=== PATIENT | male | born 1945 | race Caucasian/White ===

== ENCOUNTER 2016-12-11 17:05 | Observation (INO) | payer OTHER ==
--- NOTE | ~2016-12-11 | CR63 ---
[facility] A Service of [facility] & [facility] / [facility] RADIOLOGY TEXT RESULTS PATIENT: CRYSTAL SALVADOR LOCATION: [facility] [id number] : [birth year] UNIT #: [id number] AGE: [address]: Perry Rubi MD SEX: M ORDER DR: [id number] [facility] [address] [facility]. [place], [place] [address] [id number] MR#: [id number] Acc #: [id number] NAME: CRYSTAL SALVADOR. : 1945 SEX: M STUDY DATE/TIME: 12/12/2016 8:28 UNIT: [facility] ROOM: [facility] STUDY DESCRIPTION: CR Chest 2 View Attending Physician: Perry Rubi M.D. Referring Physician: No Primary Care Physician Ordering Physician: Perry Rubi M.D. Primary Care Physician: No Primary Care Physician MEDICAL IMAGING REPORT This report is preliminary unless electronic signature is present EXAM PA and lateral chest INDICATION Shortness of air beginning yesterday. COMPARISON 01/15/2015. FINDINGS A PA and lateral view of the chest were obtained. The heart size and vascularity are normal. There are calcified granulomas in the right lung. There are no infiltrates. Lungs are slightly hyperinflated. The bones are normal. IMPRESSION No change no active disease. Dictated by... Josue Suarez M.D. THIS IS AN ELECTRONICALLY VERIFIED REPORT Josue Suarez M.D. at 12/13/2016 3:06 PM DARIA/joie TD: 12/13/2016 01:00 JOB #: [id number] MEDICAL IMAGING REPORT COPY
--- NOTE | ~2016-12-11 | DS ---
Unit #: [id number] #: [id number] Patient: CRYSTAL MOSQUERA [id number] [address] [address] [id number] I MR#: [id number] NAME: CRYSTAL MOSQUERA. ROOM: 562 Age: 71 Sex: M Admission Date: 12/12/2016 : 1945 Discharge Date: Attending Physician: Perry Rubi M.D. Referring Physician: No Primary Care Physician Primary Care Physician: No Primary Care Physician DISCHARGE SUMMARY SHORT STAY NOTE CHIEF COMPLAINT Low oxygen saturation. HISTORY OF PRESENT ILLNESS Mr. Crystal Mosquera is a 71-year-old white male with a previous admission in 01/2015 for hypoxemia secondary to drug overdose with benzodiazepines and opiates, which he uses recreationally. The patient came to the emergency room yesterday with similar issue. He does have known chronic obstructive pulmonary disease with some moderately diminished oxygen saturation at baseline, but he was noted to be 89% on room air in the emergency room and was placed in observation status, although he was otherwise improving from his presentation of overdose with benzodiazepines and opiate pills/hydrocodone. The patient endorses mild to moderate nonproductive cough over the last three weeks. He endorses night sweats over the last three nights. He denies any subjective fevers or chills. He denies any pain with deep breathing. He denies any chest pain or skipped heart beats. He denies any burning on urination. He denies any skin rashes. He denies any diarrhea. PAST MEDICAL HISTORY 1. Chronic obstructive pulmonary disease. 2. Chronic lumbago. 3. Obstructive sleep apnea for which he is noncompliant. 4. Ongoing tobacco abuse. 5. History of pulmonary nodule, felt to be benign on previous imaging. 6. Hypertension. 7. Dyslipidemia. 8. Benzodiazepine and opiate abuse, chronic. PAST SURGICAL HISTORY 1. Colonoscopy. 2. Back surgery. SOCIAL HISTORY He smokes one to two packs per day. Denies alcohol. He does abuse benzodiazepine pills and hydrocodone, both of which he buys on the street. FAMILY HISTORY Positive for lung disease and coronary artery disease. Unit #: [id number] #: [id number] Patient: CRYSTAL MOSQUERA ALLERGIES No known drug allergies per patient. HOME MEDICATIONS The patient does not know his exact medications. He does know he is on one cholesterol pill and two blood pressure pills. Presumably based on his last discharge summary, which he does not feel his medications have changed since then, these medications are 1. Benazepril. 2. Amlodipine. 3. Atorvastatin. 4. He is not currently using his inhalers. Previously he has been on Q-Dana and albuterol, but he has had trouble keeping those in stock at home. REVIEW OF SYSTEMS Full 10-point review of systems was done and is negative with the exceptions noted above in history of present illness. Pertinent negatives are also above in history of present illness. PHYSICAL EXAMINATION GENERAL: The patient is alert and oriented, in no acute distress. VITALS: Temperature 98.4, pulse 82, respiratory rate 18, blood pressure 140/56. HEENT: Head normocephalic, atraumatic. Eyes, sclerae white. Conjunctivae are normally fused. Nose, external nares normal. Mouth, mucous membranes are moist. No oropharyngeal lesions. NECK: Supple. No cervical lymphadenopathy. Trachea midline. LUNGS: Clear to auscultation bilaterally. No rales, rhonchi or wheezes. HEART: Regular rate and rhythm. No murmurs. ABDOMEN: Soft, nontender and nondistended. No mass or hepatosplenomegaly. EXTREMITIES: No clubbing, cyanosis or edema. SKIN: No rashes or lesions. Warm and dry throughout. MUSCULOSKELETAL: No joint effusions. No muscle or joint tenderness. NEUROLOGIC: The patient has 5/5 strength in all four extremities. No focal neurologic deficits. DIAGNOSTIC STUDIES LABORATORY: CBC, BMP, urinalysis and urine drug screen are all reviewed. Please see electronic chart for details. ASSESSMENT/PLAN 1. Mild hypoxia. Appears to be transient and resolved, related to his drug overdose. The patient has chronic diminished O2 saturations due to his chronic stable chronic obstructive pulmonary disease anyway. We will ambulate the patient on room air and make sure that his saturations are improved and will check a chest x-ray to determine if the patient needs treatment for possible pneumonia prior to discharge later today. 2. Polysubstance overdose with benzodiazepines and Lortab. The patient has been counseled. He will be given outpatient contact information for substance abuse treatment programs in the city. 3. Chronic obstructive pulmonary disease. The patient is advised to follow up with Dr. Perry Montes De Oca, his regular lung doctor, who saw him both at his last hospitalization here and has seen him previously for overnight sleep studies. The patient has been advised to quit tobacco in order to avoid being on life-long oxygen within the next one to Unit #: [id number] #: [id number] Patient: CRYSTAL MOSQUERA two years. 4. Hypertension, dyslipidemia. These appear controlled. The patient can restart his home medications upon discharge and can follow up with his primary care physician, which is [facility]. Dictated by... Perry Rubi M.D. DANY/nadeem TD: 12/12/2016 07:54 JOB #: [id number] DISCHARGE SUMMARY X Prery Rubi MD X DISCHARGE SUMMARY
--- NOTE | ~2016-12-11 | DS ---
Unit #: [id number] #: [id number] Patient: CRYSTAL SALVADOR [id number] [address] [address] [id number] I MR#: [id number] NAME: CRYSTAL SALVADOR ROOM: [facility] Age: 71 Sex: M Admission Date: 12/12/2016 : 1945 Discharge Date: 12/12/2016 Attending Physician: Perry Rubi M.D. Referring Physician: No Primary Care Physician Primary Care Physician: No Primary Care Physician DISCHARGE SUMMARY DIAGNOSES AND HOSPITAL COURSE Please see H and P. DISCHARGE MEDICATIONS 1. Sertraline 50 mg p.o. daily. 2. Carvedilol 12.5 mg p.o. b.i.d. 3. Norvasc 5 mg p.o. daily. 4. Lipitor 20 mg p.o. q.h.s. 5. Vitamin D 50,000 units p.o. once weekly. He was given no new medications. He is not felt to have any indication at this time for antibiotics as he is not felt to have any source of infection. Dictated by... Rogerio Delaney/roberto TD: 12/14/2016 08:28 JOB #: [id number] DISCHARGE SUMMARY X Perry Rubi MD X DISCHARGE SUMMARY
[2016-12-11 16:42] LABS: BASOPHIL# 0.1 X10e3 (0-0.3); DIFF IND NO; EOSINOPHIL# 0.2 X10e3 (0-0.7); EOSINOPHIL% 2.7 % (0.0-7.0); HEMATOCRIT 36.8 % (38.0-50.0); HEMOGLOBIN 12.1 gm/dL (13.0-16.0); LYMPHOCYTE% 34.2 % (17.0-45.0); MEAN CELL VOLUME 89.7 FL (83-96); MEAN CORPUSCULAR HEMOGLOBIN 29.5 PG (28-34); MEAN CORPUSCULAR HGB CONC 32.8 g/dL (30-36); MONOCYTE# 0.6 X10e3 (0-1.0); MONOCYTE% 10.5 % (3.0-12.0); NEUTROPHIL# 3.1 X10e3 (1.5-7.1); NEUTROPHIL% 51.6 % (40-75); PLATELET COUNT 285 X10e3 (140-420); RED CELL DISTRIBUTION WIDTH 13.7 % (11.0-15.5)
[~2016-12-11 17:05] MED LIST: ACETAMINOPHEN PO; ALBUTEROL MININEB NEB; AMBIEN PO; AMLODIPINE BESYL5 MG PO; AMOXICILLIN PO; ANTIVERT PO; ATORVASTATIN CA20 MG PO; BENAZEPRIL HCL40 MG PO; BENAZEPRIL PO; COMBIVENT INH14.7 G1 IH; HCTZ PO; LIPITOR20 MG PO; LOTENSIN40 MG PO; LOVENOX SUBQ; NICOTINE TRANSD21 MG TD; NORCO 5/325 TAB1 TAB PO; NORVASC PO; OXYCONTIN PO; PROAIR HFA8.5 GM INH; SENOKOT S1 TA1 PO; SIMVASTATIN40 MG PO; SPIRIVA18 MCG INH; SUPRAX400 MG PO; ZITHROMAX500 MG PO; ZOCOR PO; [UNRECOGNIZED DRUG - OTHER] PO
[2016-12-11 17:13] LABS: ACETAMINOPHEN 15 ug/mL; ALBUMIN SERUM 3.3 g/dL (3.5-5.0); ALCOHOL BLOOD <5 mg/dL ([, 0]); ALKALINE PHOSPHATASE 62 U/L (32-92); ALT (SGPT) 18 U/L (10-40); AST (SGOT) 19 U/L (10-42); BILIRUBIN, DIRECT <0.1 mg/dL (0.0-0.2); BILIRUBIN,INDIRECT 0.4 mg/dL (0.0-0.9); BILIRUBIN,TOTAL 0.5 mg/dL (0.2-2.0); BLOOD UREA NITROGEN 13 mg/dL (9-23); BUN/CREATININE RATIO 16.25; CALCIUM SERUM 8.7 mg/dL (8.4-10.2); CARBON DIOXIDE 29 mmol/L (22-31); CHLORIDE 100 mmol/L (100-111); CREATININE SERUM 0.8 mg/dL (0.6-1.4); GLOM FILT RATE Estimated ABOVE60 mL/min (>60); GLUCOSE FASTING 95 mg/dL (70-110); POTASSIUM 3.8 mmol/L (3.5-5.1); PROTEIN TOTAL SERUM 7.5 g/dL (6.0-8.3); SALICYLATE <4.0 mg/dL; SODIUM 138 mmol/L (135-145)
[2016-12-11 17:37] LABS: URINE SOURCE CLEAN CATCH
[2016-12-11 17:52] LABS: URINE APPEARANCE CLEAR; URINE BILIRUBIN NEG (NEG); URINE BLOOD NEG (NEG); URINE COLOR YELLOW; URINE GLUCOSE NEG (NEG); URINE KETONE NEG (NEG); URINE LEUKOCYTE ESTERASE NEG (NEG); URINE NITRATE NEG (NEG); URINE PROTEIN NEG (NEG); URINE SPECIFIC GRAVITY 1.009 (1.003-1.035); URINE UROBILINOGEN 0.2 MG/DL (NEG)
[2016-12-11 17:57] LABS: CULTURE INDICATED? NO
[2016-12-11 18:02] LABS: AMPHETAMINE NEG (NEG); BARBITURATES NEG (NEG); BENZODIAZEPINES POS (NEG); COCAINE NEG (NEG); MARIJUANA NEG (NEG); OPIATES POS (NEG); TRICYCLIC ANTIDEPRESSANTS NEG (NEG); U METHADONE NEG (NEG)
[2016-12-12 08:00] LABS: BLOOD UREA NITROGEN 8 mg/dL (9-23); BUN/CREATININE RATIO 8.88; CALCIUM SERUM 8.6 mg/dL (8.4-10.2); CARBON DIOXIDE 31 mmol/L (22-31); CHLORIDE 103 mmol/L (100-111); CREATININE SERUM 0.9 mg/dL (0.6-1.4); GLOM FILT RATE Estimated ABOVE60 mL/min (>60); GLUCOSE FASTING 80 mg/dL (70-110); POTASSIUM 3.8 mmol/L (3.5-5.1); SODIUM 138 mmol/L (135-145)
[2016-12-12] MEDS ORDERED: ZOLOFT50 MG PO (10:04)
[2016-12-12] MEDS ORDERED: VITAMIN D50000 UNIT PO (10:04)
[2016-12-12] MEDS ORDERED: NORVASC PO (10:05)
[2016-12-12] MEDS ORDERED: COREG12.5 MG PO (10:06)
[2016-12-12] MEDS ORDERED: LIPITOR20 MG PO (10:07)
== END 2016-12-12 15:06 | disposition home or self-care (01) ==
LOC: CED 17:05 → CEDOF 12-12 00:57 → C5B 12-12 01:42
PROVIDERS: Emergency Medicine; Student in an Organized Health Care Education/Training Program
DX: T42.4X1A Poisoning by benzodiazepines, accidental (unintentional), initial encounter (principal); T40.2X1A Poisoning by other opioids, accidental (unintentional), initial encounter; R09.02 Hypoxemia; J44.9 Chronic obstructive pulmonary disease, unspecified; I10 Essential (primary) hypertension; E78.5 Hyperlipidemia, unspecified; F17.200 Nicotine dependence, unspecified, uncomplicated; G47.33 Obstructive sleep apnea (adult) (pediatric); Z82.49 Family history of ischemic heart disease and other diseases of the circulatory system; Z83.6 Family history of other diseases of the respiratory system
CPT/HCPCS: 36415; 71020; 80048; 80076; 80307; 81003; 85025; 96361; 96374; 96375; 99285; G0378; G0480; J2310; J2405